=== PATIENT | male | born 1985 | race Caucasian/White ===

== ENCOUNTER 2021-08-30 21:50 | Emergency (ER) | payer SELFPAY ==
[~2021-08-30] VITALS: Ht 175.3 cm; Wt 81.6 kg
--- NOTE | 2021-08-30 21:56 | NUR ---
Patient to ER bed 02 to gown for evaluation. Side rails up.
[2021-08-30 21:59] VITALS: BP_SYST 145
--- NOTE | 2021-08-30 22:00 | NUR ---
35 YR OLD AOX4, AMBULATORY MALE WITH COMPLAINT OF ABDOMINAL PAIN 11/11 WITH INDEGESTION FOR ONE DAY. PT REPORTS THAT WHEN HE EXPERIENCES THIS HE VOMITS AND HAS A BURNING PAIN IN HIS BELLY. PT DENIES ANY HEALTH HISTORY. MD AT THE BEDSIDE
[2021-08-30] MEDS ORDERED: ANT30 PO (22:52)
[2021-08-30] MEDS ORDERED: ONDA-8 TL (22:52)
[2021-08-30] MEDS ORDERED: FAMO-132 PO (22:52)
[2021-08-30] MEDS: MAG-AL HYDROX/SIMETH 30 ML UDC PO ONE (23:06)
[2021-08-30] MEDS: FAMOTIDINE 20 MG TABLET PO ONE (23:06)
[2021-08-30] MEDS: ONDANSETRON 4 MG ODT TAB PO ONE (23:06)
[2021-08-30 23:07] VITALS: BP_SYST 167
--- NOTE | 2021-08-30 23:12 | NUR ---
Patient given written and verbal discharge instructions and verbalizes understanding. ER MD discussed with patient the results and treatment provided. Patient in stable condition. ID arm band removed. Pt discharged with all belongings and in stable condition.
== END 2021-08-30 23:13 | disposition home or self-care (01) ==
LOC: SED 21:50
DX: K21.9 Gastro-esophageal reflux disease without esophagitis (principal)
CPT/HCPCS: 99284; Q0162